=== PATIENT | male | born 1985 | race Asian ===

== ENCOUNTER 2018-01-22 10:10 | Emergency (ER) | payer MEDICAID ==
[~2018-01-22] VITALS: Ht 172.7 cm; Wt 85.0 kg
[2018-01-22] MEDS ORDERED: IBUPROFEN 400MG TABLET PO ONE (11:00)
[2018-01-22 11:08] VITALS: BP 127/57
== END 2018-01-22 12:32 | disposition home or self-care (01) ==
LOC: ER 11:59
DX: F19.90 Other psychoactive substance use, unspecified, uncomplicated (principal); S80.211A Abrasion, right knee, initial encounter; F10.129 Alcohol abuse with intoxication, unspecified; Y90.9 Presence of alcohol in blood, level not specified; F41.9 Anxiety disorder, unspecified; J45.909 Unspecified asthma, uncomplicated; V43.52XA Car driver injured in collision with other type car in traffic accident, initial encounter; Y93.89 Activity, other specified; Y92.488 Other paved roadways as the place of occurrence of the external cause
CPT/HCPCS: 99283; Z7610